=== PATIENT | female | born 1975 | race Caucasian/White ===

== ENCOUNTER → 2017-05-12 | Outpatient (CLI) | payer BC, OTHER ==
[~2017-05-12] MED LIST: AMPH25CA3 PO; ATEN25TA PO; CIPR500T78 PO; HYDR-1231 PO; IBUP800T26 PO; LIOT5TAB6 PO; ONDA-42 SL; PTU50T PO; SRTR100T PO; SYNTHROID; TMSL.4C PO
--- NOTE | 2017-05-12 16:11 | Diagnostic Imaging Report ---
Transabdominal and transvaginal pelvic ultrasound. INDICATION: Left pelvic pain. Dyspareunia. FINDINGS: The uterus is 10.6 x 5.4 x 4.9 cm. The endometrial stripe is 0.6 cm in thickness. There is an IUD which appears in good position. The myometrium demonstrates no focal mass. There is minimal heterogeneity in the myometrium however. It is also overall enlarged which could relate to underlying adenomyosis. The right ovary is 4 x 3.5 x 2.9 cm. The left ovary is 4.9 x 4.1 x 4.1 cm. The left ovary demonstrates a simple cyst measuring 3.5 cm. The right ovary demonstrates a hypoechoic lesion measuring 3.5 cm probably a hemorrhagic cyst. Arterial and venous waveforms are demonstrated in both ovaries. There is a minimal amount of free fluid in the pelvis. IMPRESSION: 1. Enlarged heterogeneous myometrium with no discrete mass. This may relate to underlying adenomyosis. 2. Right ovarian hypoechoic lesion measuring 3.5 cm is likely a hemorrhagic cyst. Follow-up study in six weeks is recommended to document resolution. 3. Simple-appearing 3.5 cm left ovarian cyst. Dictated on workstation # [id number]
== END ==
LOC: RAD 10:22
PROVIDERS: ATTEND Specialist
DX: Z12.31 Encounter for screening mammogram for malignant neoplasm of breast (principal)
CPT/HCPCS: 76830; 76856; 77067

== ENCOUNTER → 2021-02-05 | Outpatient (CLI) | payer BC ==
--- NOTE | 2021-02-05 16:34 | Diagnostic Imaging Report ---
INDICATION: Routine screening. COMPARISON is made with prior mammograms 05/12/2017 and 06/05/2014. 2-D and 3-D bilateral screening mammography was performed with CAD. Both breasts are heterogeneously dense, limiting the sensitivity of mammography. The parenchymal pattern is stable. No mass or malignant appearing microcalcifications are seen. Axillae are unremarkable. IMPRESSION: BI-RADS Category 1 No mammographic features suspicious for malignancy are identified. ACR BI-RADS Category 1: Negative. Result letter will be mailed to the patient. Note: At least 10% of breast cancer is not imaged by mammography. Dictated by: Dictated on workstation # [id number]
== END ==
LOC: CARD 13:00
PROVIDERS: ATTEND Nurse Practitioner Family
DX: Z12.31 Encounter for screening mammogram for malignant neoplasm of breast (principal); I51.7 Cardiomegaly
CPT/HCPCS: 77063; 77067; 93306

== ENCOUNTER 2021-05-27 14:11 | Emergency (ER) | payer BC ==
[~2021-05-27] VITALS: Ht 168 cm; Wt 97.0 kg
[2021-05-27] MEDS ORDERED: LACTATED RINGERS 1,000 ML IV SCH (14:45)
[2021-05-27] MEDS ORDERED: KETOROLAC 30 MG/ML VIAL IVP ONE (14:45)
[2021-05-27] MEDS ORDERED: fentaNYL INJ 100 MCG/2 ML AMP IVP ONE (14:45)
[2021-05-27 15:00] LABS: BASOPHILS % (AUTO) 1 % (0-10); EOSINOPHILS # (AUTO) 0.1 10^3/uL (0.0-0.3); EOSINOPHILS % (AUTO) 1 % (0-10); HEMATOCRIT 40 % (35-52); HEMOGLOBIN 12.7 g/dL (11.5-16.0); LYMPHOCYTES # (AUTO) 2.2 10^3/uL (1.0-4.0); LYMPHOCYTES % (AUTO) 36 % (12-44); MEAN CORPUSCULAR HEMOGLOBIN 29 pg (25-34); MEAN CORPUSCULAR HGB CONC 32 g/dL (32-36); MEAN CORPUSCULAR VOLUME 91 fL (80-99); MEAN PLATELET VOLUME 11.8 fL (9.0-12.2); MONOCYTES # (AUTO) 0.5 10^3/uL (0.0-1.0); MONOCYTES % (AUTO) 9 % (0-12); NEUTROPHILS # (AUTO) 3.1 10^3/uL (1.8-7.8); NEUTROPHILS % (AUTO) 53 % (42-75); PLATELET COUNT 225 10^3/uL (130-400); WHITE BLOOD COUNT 5.9 10^3/uL (4.3-11.0)
--- NOTE | 2021-05-27 15:07 | ED GU-Female ---
General Chief Complaint: Abdominal/GI Problems Stated Complaint: BACK PAIN Nursing Triage Note: PT STATES BI LAT LOWER BACK PAIN, HX OF KIDNEY STONES AND FEELS LIKE THIS MAY BE THE PROBLEM. PAIN STARTED MONDAY. Source: patient Exam Limitations: no limitations (TAMICA RICE APRN) History of Present Illness Date Seen by Provider: May 27, 2021 Time Seen by Provider: 15:05 Initial Comments To ER with reports of right flank pain with nausea. The pain is constant and varies in intensity though it seems to be worsened by certain movements and twisting. This began on Monday evening, she subsequently saw the chiropractor which she states only seemed to make the pain worse. No fevers or chills. She also saw primary care and had a urinalysis done which failed to demonstrate any sign of infection. She presents today for persistent pain in the right flank. Timing/Duration: constant Severity/Quality: moderate Location: right flank Radiation: none Activities at Onset: none Prior Genitourinary Problems: none Sexual [place] History: not active Associated Symptoms: dysuria, nausea/vomiting (TAMICA RICE APRN) Allergies and Home Medications Allergies Coded Allergies: No Known Drug Allergies (Unverified , 01/25/09) Patient Home Medication List Home Medication List Reviewed: Yes (TAMICA RICE APRN) Amphet Asp/Amphet/D-Amphet (Adderall Xr 25 Mg Capsule) 25 Mg Cap.sr.24h, 25 MG PO DAILY, (Reported) Entered as Reported by: HARSHA MASCORRO on 01/09/141752 Ciprofloxacin HCl (Cipro) 500 Mg Tablet, 500 MG PO BID Prescribed by: TAMICA RICE on 01/09/14 184 Hydrocodone Bit/Acetaminophen (Hydrocodone-Apap 5-325 Tablet) 1 Tab Tablet, 1-2 TAB PO Q6H PRN for PAIN Prescribed by: TAMICA RICE on 01/09/14 184 Hydrocodone/Acetaminophen (Hydrocodone-Acetamin 5-325 mg) 1 Each Tablet, 1 TAB PO Q4H PRN for PAIN-MODERATE (5-7) Prescribed by: TAMICA RICE on 05/27/21 154 Liothyronine Sodium (Cytomel) 5 Mcg Tablet, 5 MCG PO DAILY, (Reported) Entered as Reported by: HARSHA MASCORRO on 01/09/141752 Methocarbamol (Methocarbamol) 750 Mg Tablet, 750 MG PO Q6-8HR Prescribed by: TAMICA RICE on 05/27/21 1549 Ondansetron Hcl (Zofran Oral Dissolve) 4 Mg Tab, 4 MG SL Q4H Prescribed by: TAMICA RICE on 01/09/141841 Sertraline Hcl (Zoloft) 100 Mg Tab, 100 MG PO DAILY, (Reported) Entered as Reported by: HARSHA MASCORRO on 01/09/141752 Tamsulosin Hcl (Flomax) 0.4 Mg Cap, 0.4 MG PO DAILY Prescribed by: TAMICA RICE on 01/09/141841 [Synthroid] , (Reported) Entered as Reported by: HARSHA MASCORRO on 01/09/141752 Review of Systems Review of Systems Constitutional: see HPI EENTM: see HPI Respiratory: no symptoms reported Cardiovascular: no symptoms reported Genitourinary: no symptoms reported, flank pain Musculoskeletal: no symptoms reported Skin: no symptoms reported Psychiatric/Neurological: No Symptoms Reported Endocrine: No Symptoms Reported Hematologic/Lymphatic: No Symptoms Reported (TAMICA RICE APRN) Past Ubrmrlo-Earfda-Dexcbx Hx Patient Social History Tobacco Use?: No Smoking Status: Never a Smoker Substance use?: No Alcohol Use?: Yes Alcohol type: Beer, Wine Alcohol Frequency: Rarely (TAMICA RICE APRN) Immunizations Up To Date Second COVID19 Vaccination Johnathan: 12/2020 COVID19 Vaccine Buyer Assistant: LOULOU (TAMICA RICE APRN) Past Medical History Last Menstrual Period: Apr 29, 2021 Reproductive Disorders: No 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 oz. 92.331782po; 34.00 BMI Method:Stated General Appearance: WD/WN, no apparent distress HEENT: PERRL/EOMI, normal ENT inspection Neck: non-tender, full range of motion, supple Respiratory: no respiratory distress, no accessory muscle use Gastrointestinal: normal bowel sounds, non tender, soft Extremities: normal range of motion, non-tender Neurologic/Psychiatric: alert, normal mood/affect, oriented x 3 Skin: normal color, warm/dry (TAMICA RICE APRN) Progress/Results/Core Measures Suspected Sepsis SIRS Temperature: Pulse: 73 Respiratory Rate: 18 Laboratory Tests 05/27/21 14:50: White Blood Count 5.9 Blood Pressure 148 /76 Mean: 100 Laboratory Tests 05/27/21 14:50: Creatinine 0.68, Platelet Count 225, Total Bilirubin 0.2 (TAMICA RICE APRN) Results/Orders Lab Results Laboratory Tests Test 05/27/21 14:15 05/27/21 14:50 Range/Units Urine Color YELLOW Urine Clarity SL CLOUDY Urine pH 6.0 5-9 Urine Specific [place] >=1.030 1.016-1.022 Urine Protein NEGATIVE NEGATIVE Urine Glucose (UA) NEGATIVE NEGATIVE Urine Ketones NEGATIVE NEGATIVE Urine Nitrite NEGATIVE NEGATIVE Urine Bilirubin NEGATIVE NEGATIVE Urine Urobilinogen 0.2 < = 1.0 MG/DL Urine Leukocyte Esterase NEGATIVE NEGATIVE Urine RBC (Auto) NEGATIVE NEGATIVE Urine RBC NONE /HPF Urine WBC 2-5 /HPF Urine Squamous Epithelial Cells 5-10 /HPF Urine Crystals NONE /LPF Urine Bacteria FEW H /HPF Urine Casts NONE /LPF Urine Mucus NEGATIVE /LPF Urine Culture Indicated YES White Blood Count 5.9 4.3-11.0 10^3/uL Red Blood Count 4.37 3.80-5.11 10^6/uL Hemoglobin 12.7 11.5-16.0 g/dL Hematocrit 40 35-52 % Mean Corpuscular Volume 91 80-99 fL Mean Corpuscular Hemoglobin 29 25-34 pg Mean Corpuscular Hemoglobin Concent 32 32-36 g/dL Red Cell Distribution Width 14.4 10.0-14.5 % Platelet Count 225 130-400 10^3/uL Mean Platelet Volume 11.8 9.0-12.2 fL Immature Granulocyte % (Auto) 0 % Neutrophils (%) (Auto) 53 42-75 % Lymphocytes (%) (Auto) 36 12-44 % Monocytes (%) (Auto) 9 0-12 % Eosinophils (%) (Auto) 1 0-10 % Basophils (%) (Auto) 1 0-10 % Neutrophils # (Auto) 3.1 1.8-7.8 10^3/uL Lymphocytes # (Auto) 2.2 1.0-4.0 10^3/uL Monocytes # (Auto) 0.5 0.0-1.0 10^3/uL Eosinophils # (Auto) 0.1 0.0-0.3 10^3/uL Basophils # (Auto) 0.0 0.0-0.1 10^3/uL Immature Granulocyte # (Auto) 0.0 0.0-0.1 10^3/uL Sodium Level 137 135-145 MMOL/L Potassium Level 3.8 3.6-5.0 MMOL/L Chloride Level 103 98-107 MMOL/L Carbon Dioxide Level 23 21-32 MMOL/L Anion Gap 11 5-14 MMOL/L Blood Urea Nitrogen 10 7-18 MG/DL Creatinine 0.68 0.60-1.30 MG/DL Estimat Glomerular Filtration Rate 93 BUN/Creatinine Ratio 15 Glucose Level 118 H 70-105 MG/DL Calcium Level 9.3 8.5-10.1 MG/DL Corrected Calcium 9.4 8.5-10.1 MG/DL Total Bilirubin 0.2 0.1-1.0 MG/DL Aspartate Amino Transf (AST/SGOT) 31 5-34 U/L Alanine Aminotransferase (ALT/SGPT) 20 0-55 U/L Alkaline Phosphatase 59 40-136 U/L Total Protein 6.2 L 6.4-8.2 GM/DL Albumin 3.9 3.2-4.5 GM/DL (OWEN VIDAL MD) Micro Results Microbiology 05/27/21 Urine Culture - Final, Complete Lactobacillus species (OWEN VIDAL MD) Vital Signs/I&O Capillary Refill : Less Than 3 Seconds (TAMICA RICE APRN) Blood Pressure Mean: 100 Departure Impression Primary Impression: Musculoskeletal back pain Disposition: 01 HOME, SELF-CARE Condition: Stable Departure-Patient Inst. Decision time for Depature: 15:48 (TAMICA RICE APRN) Referrals: CAREY AGUIRRE DO (PCP) Primary Care Physician ANAT AGUIRRE, DNP (Family) Primary Care Physician Patient Instructions: Acute Pain, Adult Scripts Methocarbamol (Methocarbamol) 750 Mg Tablet 750 MG PO Q6-8HR for Back Pain, #30 TAB Prov: TAMICA RICE APRN 05/27/21 Hydrocodone/Acetaminophen (Hydrocodone-Acetamin 5-325 mg) 1 Each Tablet 1 TAB PO Q4H PRN for PAIN-MODERATE (5-7), #10 TAB Prov: TAMICA RICE APRN 05/27/21 ATTENDING PHYSICIAN NOTE: I was physically present as attending physician in the emergency department during the care of this patient, but I was not directly involved in the decision making or delivery of care for this patient. (OWEN VIDAL MD) Copy Copies To 1: CAREY AGUIRRE PETER J APRN May 27, 2021 15:07 OWEN VIDAL MD May 29, 2021 06:29
[2021-05-27 15:12] LABS: ALBUMIN 3.9 GM/DL (3.2-4.5); POTASSIUM 3.8 MMOL/L (3.6-5.0)
[2021-05-27 15:13] LABS: CALCIUM 9.3 MG/DL (8.5-10.1)
[2021-05-27 15:14] LABS: TOTAL PROTEIN 6.2 GM/DL (6.4-8.2)
[2021-05-27 15:16] LABS: BILIRUBIN,TOTAL 0.2 MG/DL (0.1-1.0)
[2021-05-27 15:18] LABS: CREATININE SERUM 0.68 MG/DL (0.60-1.30)
[2021-05-27 15:24] LABS: BILIRUBIN,URINE NEGATIVE (NEGATIVE); CLARITY,URINE SL CLOUDY; COLOR,URINE YELLOW; GLUCOSE, URINE (UA) NEGATIVE (NEGATIVE); KETONES,URINE NEGATIVE (NEGATIVE); LEUKOCYTE ESTERASE ,URINE NEGATIVE (NEGATIVE); NITRITE,URINE NEGATIVE (NEGATIVE); PROTEIN,URINE NEGATIVE (NEGATIVE)
--- NOTE | 2021-05-27 15:27 | Diagnostic Imaging Report ---
INDICATION: Back pain. History of kidney stones. COMPARISON: None. FINDINGS: Two supine radiographic views of the abdomen were obtained and demonstrate nondistended loops of small bowel. There is no large collection of free peritoneal air. Moderate air and stool are seen scattered throughout the colon. No unexpected extraosseous calcifications or radiopaque foreign bodies are seen. Indwelling IUD is noted. Bony structures show no gross acute abnormalities. IMPRESSION: 1. Nonobstructed small bowel gas pattern. 2. Moderate colonic air and stool. Please correlate for constipation. Dictated by: Dictated on workstation # [id number]
--- NOTE | 2021-05-27 15:36 | Diagnostic Imaging Report ---
PROCEDURE: CT urinary tract, rule out kidney stone. TECHNIQUE: Multiple contiguous axial images were obtained through the abdomen and pelvis without the use of intravenous contrast. Auto Exposure Controls were utilized during the CT exam to meet ALARA standards for radiation dose reduction. INDICATION: Bilateral flank pain, history of nephrolithiasis, symptoms since Monday. COMPARISON: Abdominopelvic CT 01/09/2014. There are no radiopaque urinary calculi. The right hemipelvic calcification is believed to be a gonadal vein phlebolith. There is no hydroureteronephrosis. There is no perinephric or periureteric edema. No retroperitoneal stranding. The unopacified urinary bladder appears normal. There is no other significant finding. There is a left adnexal cyst, 3.8 cm, showing no complexity. There is no diverticulitis. There is no appendicitis. There is no ascites, abscess, hematoma or acute fluid collection. No perienteric or pericolonic edema. No diverticulitis. No pneumatosis or free air. The gallbladder is surgically absent. There is mild chronic fatty changes to the liver, spleen, adrenals and pancreas, unremarkable. The aorta is nonaneurysmal. IMPRESSION: No hydronephrosis. No opaque urinary tract stone. Right retroperitoneal calcification believed to be gonadal vein phlebolith. A left ovarian cyst is 3.8 cm. Dictated on workstation # [id number]
[2021-05-27 15:38] LABS: BACTERIA,URINE FEW /HPF
[2021-05-27] MEDS ORDERED: METH-732 PO (15:49)
[2021-05-27] MEDS ORDERED: ACHD5005 PO (15:49)
[2021-05-27 15:57] VITALS: BP 140/74
== END 2021-05-27 15:56 | disposition other institution (70) ==
LOC: EDUNIT# 14:11 → ER 14:12
DX: M54.9 Dorsalgia, unspecified (principal); F41.9 Anxiety disorder, unspecified; E03.9 Hypothyroidism, unspecified; Z79.899 Other long term (current) drug therapy; Z79.890 Hormone replacement therapy
CPT/HCPCS: 36415; 74018; 74176; 80053; 81000; 85025; 87088

== ENCOUNTER → 2022-07-25 | Outpatient (CLI) | payer BC ==
[~2022-07-25] MED LIST changes: +ACHD5005 PO; +METH-732 PO
--- NOTE | 2022-07-25 10:59 | Diagnostic Imaging Report ---
Indication: Routine screening. Comparison is made with prior mammogram 02/05/2021 and 05/12/2017. 2-D and 3-D bilateral screening mammography was performed with CAD. CAD is utilized. The current study was also evaluated with a Computer Aided Detection (CAD) system. Both breasts are heterogeneously dense, limiting the sensitivity of mammography. The parenchymal pattern is stable. No mass or malignant-appearing microcalcifications are seen. Axillae are unremarkable. IMPRESSION: BI-RADS Category 1 No mammographic features suspicious for malignancy are identified. ACR BI-RADS Category 1: Negative. Result letter will be mailed to the patient. Note: At least 10% of breast cancer is not imaged by mammography. Dictated by: Dictated on workstation # [id number]
== END ==
LOC: RAD 08:50
PROVIDERS: ATTEND Surgery
DX: Z12.31 Encounter for screening mammogram for malignant neoplasm of breast (principal)
CPT/HCPCS: 77063; 77067